=== PATIENT | male | born 1975 | race Caucasian/White ===

== ENCOUNTER 2018-10-24 17:27 | Emergency (ER) | payer BC, OTHER ==
[2018-10-24] MEDS ORDERED: HYDROcodone/ACETAMIN 5-325 MG* 1 TAB PO ONE (17:51)
--- NOTE | 2018-10-24 17:56 | UC ---
Back Pain HPI - HPI Summary HPI Summary: 43-year-old male comes in to clinic today with a chief complaint of low back pain. His been going on and off since June. Pain got worse yesterday. No known trauma. Today he was twisting and bending and the pain got a lot worse. Pains in the lower lumbar region and radiates off to the right. Does radiate down into the right leg to above the knee. There is no weakness no difficulty controlling urine or bowel. Is having some tingling in the bilateral toes. Pain is worse with twisting turning bending. Has been taking ibuprofen which has been helping until it got worse today. - History of Current Complaint Chief Complaint: UCBackPain Stated Complaint: BACK PAIN+ Time Seen by Provider: 10/24/18 17:41 Pain Intensity: 9 - Allergies/Home Medications Allergies/Adverse Reactions: Allergies Allergy/AdvReac Type Severity Reaction Status Date / Time No Known Allergies Allergy Verified 10/24/18 17:37 PMH/Surg Hx/FS Hx/Imm Hx Previously Healthy: Yes - Surgical History Surgical History: Yes Surgery Procedure, Year, and Place: inguinal hernia repair at 5 yoa; wisdom teeth - Family History Known Family History: Positive: Other - hyperlipidemia - Social History Alcohol Use: Daily Substance Use Type: None Smoking Status (MU): Never Smoked Tobacco Have You Smoked in the Last Year: No Review of Systems All Other Systems Reviewed And Are Negative: Yes Constitutional: Positive: Negative Skin: Positive: Negative Eyes: Positive: Negative ENT: Positive: Negative Respiratory: Positive: Negative Cardiovascular: Positive: Negative Gastrointestinal: Positive: Negative Genitourinary: Positive: Negative. Negative: Dysuria Motor: Positive: Negative Neurovascular: Positive: Other - SEE HPI Musculoskeletal: Positive: Other: - SEE HPI Neurological: Positive: Other - SEE HPI Psychological: Positive: Negative Is Patient Immunocompromised?: No Physical Exam Triage Information Reviewed: Yes Appearance: Well-Appearing, Well-Nourished, Pain Distress - WITH ANY MOVEMENT OF THE BACK Vital Signs: Initial Vital Signs Temp 97.4 F 10/24/18 17:34 Pulse 78 10/24/18 17:34 Resp 18 10/24/18 17:34 BP 131/92 10/24/18 17:34 Pulse Ox 98 10/24/18 17:34 Vital Signs Reviewed: Yes Eye Exam: Normal Eyes: Positive: Conjunctiva Clear Neck exam: Normal Neck: Positive: Supple Respiratory: Positive: No respiratory distress Musculoskeletal Exam: Normal Musculoskeletal: Positive: Strength Intact, Other: - Patient is tender to palpation in the lower lumbar and off to the right side of the lower lumbar region and into the right buttock patient is tender to palpation. Legs have full range of motion pain does get worse with movement of the legs primarily the right leg. No sensation deficit on exam. Neurological Exam: Normal Neurological: Positive: Alert, Muscle Tone Normal Psychological Exam: Normal Psychological: Positive: Normal Response To Family, Age Appropriate Behavior Skin Exam: Normal Back Pain Course/Dx - Course Course Of Treatment: There is no neurologic deficit by history or exam. he does report some tingling in bilateral toes which I'm unsure if that has to do with his back pain. The overall plan is to continue with the ibuprofen and then take Flexeril as needed. In addition if needed I prescribed hydrocodone. Also discussed stretches and follow-up with primary care doctor. I let him know if he gets any sort of neurologic deficit or concerns he is to get reevaluated right away. - Differential Dx/Diagnosis Provider Diagnosis: Lumbar radiculopathy, right, Low back pain Discharge - Sign-Out/Discharge Documenting (check all that apply): Patient Departure All imaging exams completed and their final reports reviewed: No Studies - Discharge Plan Condition: Stable Disposition: HOME Prescriptions: Cyclobenzaprine TAB* [Flexeril 10 MG TAB*] 10 mg PO TID PRN #15 tab MDD 3 PRN Reason: Pain HYDROcodone/ACETAMIN 5-325 MG* [[place] 5-325 TAB*] 1 tab PO Q4H PRN #20 tab MDD 6 PRN Reason: Pain Patient Education Materials: Acute Low Back Pain (ED), Lower Back Exercises (ED ), Lumbar Radiculopathy (ED) Referrals: Elfego Canales DO [Primary Care Provider] - Additional Instructions: FOLLOW UP WITH YOUR DOCTOR IF NOT COMPLETELY IMPROVED. GET RECHECKED FOR ANY WORSENING OF YOUR CONDITION; WEAKNESS, NUMBNESS, DIFFICULTY CONTROLLING BOWEL OR BLADDER, PAIN OR QUESTIONS OR CONCERNS. - Billing Disposition and Condition Condition: STABLE Disposition: Home
[2018-10-24 18:00] VITALS: BP 131/92
== END 2018-10-24 18:11 | disposition home or self-care (01) ==
LOC: UCEAST 17:27
DX: M54.16 Radiculopathy, lumbar region (principal)
CPT/HCPCS: 99212; G0463